=== PATIENT | female | born 1985 | race African-American/Black ===

== ENCOUNTER 2019-11-26 13:01 | Emergency (ER) | payer OTHER, SELFPAY ==
[2019-11-26 13:03] VITALS: BP 127/65; PULSE 88; RESP 18; TEMP 36.6; O2SAT 100
[2019-11-26 13:16] LABS: Basophils Absolute Auto 0.1 K/mm3 (0.0-0.1); Basophils Percent Auto 0.8 % (0.2-1.2); Eosinophils Absolute Auto 0.2 K/mm3 (0-0.3); Hematocrit 27.6 % (37.0-47.0); Immature Granulocyte Absolute 0.01 K/mm3 (0.00-0.031); Immature Granulocyte Percent A 0.1 % (0-0.5); Lymphocytes Absolute Auto 3.94 K/mm3 (0.9-3.2); Lymphocytes Percent Auto 47.2 % (18.3-44.2); Mean Corpuscular Hemoglobin 15.7 pg (26-34); Mean Corpuscular Volume 54.3 fl (80-100); Mean Platelet Volume 8.8 fl (7.4-10.4); Monocytes Percent Auto 11.5 % (2.6-8.5); Neutrophils Absolute Auto 3.2 K/mm3 (1.3-6.7); Neutrophils Percent Auto 38.4 % (45.5-73.1); Platelet Count Result 354 k/mm3 (150-375); Red Blood Count 5.08 M/mm3 (4.2-5.4); White Blood Count 8.4 K/mm3 (4.5-10.0)
[2019-11-26 13:22] VITALS: BP 112/63; PULSE 78
[2019-11-26 13:23] VITALS: BP 116/66; BP 116/77; PULSE 89; PULSE 90
[2019-11-26 13:28] LABS: Alanine Aminotransferase 17 U/L (4-35); Albumin Level 3.8 g/dL (3.5-5.1); Alkaline Phosphatase 60 U/L (38-126); Aspartate Amino Transferase 33 U/L (14-36); Bilirubin,Total 0.3 mg/dL (0.2-1.3); Blood Urea Nitrogen 12 mg/dL (7-17); Calcium 8.9 mg/dL (8.4-10.2); Carbon Dioxide 23 mmol/L (22-30); Chloride 108 mmol/L (98-107); Estimated Glomerular Filt Rate > 60; Glucose 96 mg/dL (65-105); Lipase 203 U/L (23-300); Potassium 3.8 mmol/L (3.4-5.0); Sodium 138 mmol/L (137-145)
[2019-11-26 13:34] LABS: Anisocytosis 1+ (NORMAL); Hypochromasia 2+ (NORMAL); Platelet Estimate Adequate (Adequate); Target Cells 2+ (NORMAL)
[2019-11-26 13:36] LABS: Add Urine Microscopic? YES; Appearance Urine Clear (Clear); Bilirubin Urine Negative (Negative); Blood Urine Negative (Negative); Color Urine Straw (Yellow); Glucose Urine UA Negative (Negative); Ketones Urine Negative (Negative); Leukocyte Esterase Ur Negative LEU/UL (Negative); Mucus Urine Rare /lpf; Nitrate Urine Negative (Negative); Protein Urine Negative (Negative); RBC Urine 0-2 /hpf (0-2); Specific Grav Ur 1.017 (1.001-1.035); Squamous Epithelial Cell Urine Rare /hpf (Few); Urobilinogen Urine Negative mg/dL (<2.0); WBC Urine 0-3 /hpf
--- NOTE | 2019-11-26 13:42 | ED.NAVMDI ---
HPI - Nausea/Vomiting/Diarrhea General Chief complaint: Nausea/Vomiting/Diarrhea Stated complaint: diarrhea Time Seen by Provider: 11/26/19 13:25 Source: patient Mode of arrival: ambulatory Limitations: no limitations History of Present Illness HPI Narrative: A 33 y/o female pt presents to the ED, with c/o diarrhea since (2 days ago). Pt notes that she began having N/V yesterday and reports emesis x 2 yesterday, and emesis x 2 today. She states that she felt nauseous when standing up to go to the bathroom to vomit. Pt notes having a subjective fever, epigastric and RLQ, LLQ ABD pain, but denies any SOB or CP. She describes her diarrhea as being watery, but denies any bloody or dark stools. Pt notes taking Mucinex, and Tylenol for her ABD pain, with no relief, but denies taking any medication for her diarrhea. 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 Pt notes a PMHx of anemia and reports NKA. MD elicited complaint: nausea, vomiting, diarrhea and abdominal pain Onset (ago): day(s) (2) Description of diarrhea: watery Associated nausea: Yes Associated abdominal pain: Yes Location of pain: epigastric, RLQ and LLQ Exacerbating factors: vomiting Context: sick contacts (works in a hospital) Associated symptoms: nausea/vomiting and other (diarrhea, lightheadedness, subjective fever) Treatment prior to arrival: other OTC medicine ( Mucinex, Tylenol) Related Data Home Medications Medication Instructions Recorded Confirmed ibuprofen 11/26/19 Allergies Allergy/AdvReac Type Severity Reaction Status Date / Time No Known Allergies Allergy Verified 11/26/19 13:09 Review of Systems Review of Systems: All systems reviewed & are unremarkable except as noted in HPI and below Constitutional: Constitutional: Reports fever(s) (subjective) Cardiovascular: Cardiovascular: Denies chest pain, Reports lightheadedness and Denies dyspnea Gastrointestinal: Gastrointestinal: Reports abdominal pain (epigastric, RLQ, LLQ), Denies melena, Denies hematochezia, Reports diarrhea, Reports nausea and Reports vomiting PMFSH Past Medical History Medical History (Updated 11/26/19 @ 14:54 by Patricio Escoto MD) Anemia Surgical History Surgical History (Updated 11/26/19 @ 14:40 by NITIN Alba) History of section Social History Social History (Updated 11/26/19 @ 14:41 by NITIN Alba) Occupation/Education: occupation 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 Gender identity (if verbalized by the patient): Female Exam Const: General: healthy appearing and no acute distress Nutritional Appearance: well nourished HENMT: Mouth: Yes lip normal and Yes moist mucous membranes Eyes: Conjunctivae: conjunctivae normal Pupils: Equal, round and reactive pupils present Resp: Effort & Inspection: normal respiratory effort Auscultation: clear to auscultation bilaterally Cardio: Rate: regular rate Rhythm: regular rhythm Heart sounds: no murmurs GI: GI Palp: Yes Soft to palpation and No Tenderness to palpation present (GI) Auscultation: normal bowel sounds Back/Spine/Pelvis: Other: Full ROM Skin: General skin exam: normal color, dry skin and other (warm) Neuro: General: patient oriented x3 (alert) Speech: normal speech Extrem: General: full ROM Psych: Mental Status: mental status grossly normal Affect: normal affect Course Course Emergency Course: Called to the room to examine her arm. She has a hematoma to the site where her labs were drawn from the left forearm. Vital Signs Vital signs: Vital Signs Temperature 36.6 C 11/26/19 13:03 Pulse Rate 88 11/26/19 13:03 Respiratory Rate 18 11/26/19 13:03 Blood Pressure 127/65 11/26/19 13:03 Pulse Oximetry 100 11/26/19 13:03 Temperature 36.6 C 11/26/19 13:03 Pulse Rate 74 11/26/19 15:13 Respiratory Rate 20 11/26/19 15:13 Blood Pressure 109/78 02
[2019-11-26] MEDS: SODIUM CHLORIDE 0.9% IV 1,000 ML 999 ML IV CONT (13:56)
[2019-11-26] MEDS: ONDANSETRON INJ 4 MG/2 ML VIAL IV PUSH (13:56)
--- NOTE | 2019-11-26 14:16 | PC.NURSE ---
Patient c/o swelling to right arm and pain. States she noted after having blood drawn in triage. Dr. Escoto and charge master specialist notified.
[2019-11-26] MEDS: LOPERAMIDE HCL 2 MG CAPSULE 4 MG PO (14:26)
[2019-11-26 14:47] VITALS: BP 103/70; PULSE 60; RESP 18; O2SAT 100
[2019-11-26 15:13] VITALS: BP 109/78; PULSE 74; RESP 20; O2SAT 100
== END 2019-11-26 15:15 | disposition home or self-care (01) ==
PROVIDERS: Emergency Medicine; Emergency Provider Emergency Medicine
DX: K52.9 Noninfective gastroenteritis and colitis, unspecified (principal); T80.89XA Other complications following infusion, transfusion and therapeutic injection, initial encounter; D64.9 Anemia, unspecified
CPT/HCPCS: 36415; 80053; 81001; 83690; 85025; 96361; 96374; 99284; A9270; J2405; J7030

== ENCOUNTER 2020-01-29 13:09 | Emergency (ER) | payer OTHER, SELFPAY ==
--- NOTE | ~2020-01-29 | XR_ITS ---
EXAMINATION: XR chest 1V portable 01/29/2020 14:13 INDICATION: Shortness of breath and fever PROCEDURE: AP portable chest COMPARISON: No prior studies for comparison. FINDINGS: The lungs are clear. The cardiomediastinal silhouette is within normal limits. There are no pleural effusions. There is no pneumothorax suspected. IMPRESSION: 1: NO ACUTE CARDIOPULMONARY DISEASE. Reviewed, dictated and finalized at location A.
[2020-01-29 13:10] VITALS: BP 135/71; PULSE 68; RESP 20; TEMP 36.2; O2SAT 98
[2020-01-29 13:51] VITALS: O2SAT 98
--- NOTE | 2020-01-29 14:35 | ED.GENADULT ---
HPI - General Adult General Chief complaint: Upper Respiratory Infection Stated complaint: intermittent fevers Time Seen by Provider: 01/29/20 13:18 Source: patient Mode of arrival: ambulatory Limitations: no limitations History of Present Illness HPI narrative: This patient is a 34 yo female who presents for evaluation of itchy throat and exposure to Coronavirus. PAtient states yesterday she had subjective low grade fever. She also reports itchy throat, runny nose . She also reports intermittent episodes of discomfort in throat that makes her feels like she had trouble breathing. She denies chest pain, sob today. She also denies fever today. She denies signs of dVT such as leg swelling or calf pain. She does not take OCP. She reports her significant other's son was exposed to someone with COVID and he is not feeling well today. Related Data Home Medications Medication Instructions Recorded Confirmed ibuprofen 800 mg PO Q6H PRN 11/26/19 ferrous sulfate 325 mg PO TID 01/29/20 Allergies Allergy/AdvReac Type Severity Reaction Status Date / Time No Known Allergies Allergy Verified 01/29/20 13:49 Review of Systems Review of Systems: All systems reviewed & are unremarkable except as noted in HPI and below Constitutional: Constitutional: Denies chills and Reports fever(s) (subjective) ENT: Reports nasal congestion and Reports sore throat (?) Respiratory: Respiratory: Denies cough, Reports dyspnea and Denies wheezing Musculoskeletal: Musculoskeletal: Denies joint swelling PMFSH Past Medical History Medical History (Updated 01/29/20 @ 14:50 by Lacey Castro MD) Anemia Surgical History Surgical History (Updated 11/26/19 @ 14:40 by NITIN Alba) History of section Social History Social History (Updated 11/26/19 @ 14:41 by Fouzia Linder Iptune) 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 HEAD: Normocephalic, atraumatic EYES: PERRLA and EOMI, conjunctiva clear without discharge EARS: TM's clear bilaterally without erythema or dullness NOSE: Nares clear, no rhinorrhea or epistaxis THROAT:Mucous membranes moist, Oropharynx normal without erythema, exudate, peritonsillar swelling or fluctuance NECK: Supple, without lymphadenopathy or mass RESPIRATORY: No respiratory distress, Airway patent, Respirations non-labored, Clear to auscultation without rales, rhonchi or wheeze HEART: Regular rate and rhythm. No murmur heard. Normal peripheral pulses. ABDOMEN: Soft, nontender, nondistended, normal active bowel sounds. No masses. No rebound or guarding, No organomegaly. EXTREMITIES: No edema, normal strength with full range of motion. SKIN: Warm, dry, normal color without rash NEURO: Alert and oriented x3. CN 2-12 grossly intact. No focal deficits. PSYCH: Normal mood and affect. Course Reevaluation(s) Reevaluation #1: I have explained to patient that she has normal vital signs with no fever today. She has negative chest xray. She is PERC negative. She has not shortness of breath or fever at this time so I do not believe she needs additional testing. Date: 01/29/20 Time: 14:45 Vital Signs Vital signs: Vital Signs Temperature 97.2 F L 01/29/20 13:10 Pulse Rate 68 01/29/20 13:10 Respiratory Rate 20 01/29/20 13:10 Blood Pressure 135/71 01/29/20 13:10 Pulse Oximetry 98 01/29/20 13:10 Temperature 97.2 F L 01/29/20 13:10 Pulse Rate 58 L 01/29/20 15:11 Respiratory Rate 16 01/29/20 15:11 Blood Pressure 114/77 01/29/20 15:11 Pulse Oximetry 100 01/29/20 15:11 Medical Decision Making Vital Signs Vital Signs: Vital Signs Temperature 97.2 F L 01/29/20 13:10 Pulse Rate 68 01/29/20 13:10 Respiratory Rate 20 01/29/20 13:10 Blood Pressure 135
[2020-01-29 15:11] VITALS: BP 114/77; PULSE 58; RESP 16; O2SAT 100
[2020-01-30 13:28] LABS: SARS-CoV-2 RNA PCR Negative
== END 2020-01-29 15:13 | disposition home or self-care (01) ==
PROVIDERS: Emergency Provider General Practice
DX: J06.9 Acute upper respiratory infection, unspecified (principal); Z20.828 Contact with and (suspected) exposure to other viral communicable diseases; D64.9 Anemia, unspecified
CPT/HCPCS: 71045; 87635; 99283; C9803; U0003